=== PATIENT | male | born 1985 | race African-American/Black ===

== ENCOUNTER 2021-09-07 11:51 | Outpatient (REF) | payer BC, SELFPAY ==
--- NOTE | ~2021-09-07 | XR_ITS ---
EXAMINATION: XR SHOULDER, RIGHT CLINICAL INFORMATION: Right shoulder injury. COMPARISON: 12/05/2015 TECHNIQUE: Four views of the right shoulder. FINDINGS: No fracture or dislocation. The glenohumeral joint is well aligned. The joint space is maintained. Widening at the acromioclavicular joint is unchanged from previous imaging. The visualized lung is clear. Visualized ribs are intact. XR/XR shoulder RT min 2V IMPRESSION: Normal appearance of the glenohumeral joint. Chronic widening of the acromioclavicular joint.
== END 2021-09-07 11:52 | disposition home or self-care (01) ==
LOC: HO.XRAY 11:51
PROVIDERS: PCP Internal Medicine; Visit Provider Internal Medicine
DX: S49.91XA Unspecified injury of right shoulder and upper arm, initial encounter (principal); X58.XXXA Exposure to other specified factors, initial encounter; Y93.9 Activity, unspecified; Y92.9 Unspecified place or not applicable; Y99.8 Other external cause status
CPT/HCPCS: 73030

== ENCOUNTER 2022-01-17 15:25 | Outpatient (REF) | payer BC, SELFPAY ==
--- NOTE | ~2022-01-17 | MR_ITS ---
EXAMINATION: MR FEMUR WITHOUT CONTRAST, RIGHT CLINICAL INFORMATION: Right thigh pain following injury in October 2019. COMPARISON: None TECHNIQUE: Multisequence MR imaging of the right femur was obtained without contrast on a high-field strength scanner. FINDINGS: BONE: No abnormal marrow signal. No stress reaction, fracture, or avascular necrosis. No concerning lytic or blastic osseous lesion. MUSCLES/TENDONS: The visualized muscles and tendons are intact. No measurable tear. No associated edema to suggest acute injury. SOFT TISSUES: No abnormal soft tissue mass or fluid collection. No significant subcutaneous edema. The visualized intrapelvic structures are unremarkable. MR/MR femur RT wo con IMPRESSION: Unremarkable examination.
== END 2022-01-17 15:26 | disposition home or self-care (01) ==
LOC: HO.MRI 15:25
PROVIDERS: PCP Internal Medicine; Visit Provider Internal Medicine
DX: M79.651 Pain in right thigh (principal); S79.911D Unspecified injury of right hip, subsequent encounter
CPT/HCPCS: 73718

== ENCOUNTER → 2023-07-16 08:13 | Outpatient (REF) | payer BC, SELFPAY ==
--- NOTE | 2023-07-16 08:18 | CA_ITS ---
Acquisition Time: 2023-07-16 08:26:33 Total Exercise Time: 00:10:00 Test Indications: CP Medications: SEE H Protocol: DWAYNE Max HR: 160 BPM 87% of Pred: 182 BPM Max BP: 168/068 mmHG Max Work Load: 11.7 METS PT EXERCISED ON STD DWAYNE PROTOCOL FOPR 10 MIN INTO STAGE 4. MAX HR 160-87%MAX. NO CP OR SOB. NO EKG CHANGES. CLINICALLY AND ELEC NEG. Referred By: Jarek Miller Overread By: SEBASTIAN MILLER MD
[2023-07-16 09:09] LABS: MANUAL DIFF FLAG NO
[2023-07-16 09:29] LABS: Basophils Percent Auto 0.6 % (0-2); Eosinophils Absolute Auto 0.2 X10*3/uL (0.0-0.4); Eosinophils Percent Auto 4.4 % (0-4); Hematocrit 46.7 % (42.0-52.0); Hemoglobin 15.9 g/dl (14.0-18.0); Imm Gran Abs Auto 0.01 X10*3/uL (0.00-0.03); Imm Gran Pct Auto 0.3 % (0.0-0.4); Lymphocytes Absolute Auto 1.7 X10*3/uL (1.2-4.9); Lymphocytes Percent Auto 49.1 % (20-40); Mean Corpuscular Hemoglobin 30.6 pg (27.0-33.0); Mean Platelet Volume 10.2 fL (9.4-12.4); Monocytes Absolute Auto 0.4 X10*3/uL (0.1-1.2); Monocytes Percent Auto 11.1 % (2-11); Neutrophils Absolute Auto 1.2 x10*3/uL (2.0-8.3); Neutrophils Percent Auto 34.5 % (45-73); Platelet Count 192 X10*3/uL (160-400); Red Blood Count 5.19 X10*6/uL (4.60-5.80); Red Cell Distribution Width 12.4 % (11.0-16.0); White Blood Count 3.4 X10*3/uL (4.8-10.8)
[2023-07-16 10:15] LABS: Alanine Aminotransferase 34 U/L (0-40); Albumin Level 4.3 g/dL (3.5-5.0); Alkaline Phosphatase 61 U/L (39-117); Anion Gap 12 (12-20); Aspartate Amino Transferase 26 U/L (5-37); Bilirubin Total 1.8 mg/dL (0.0-1.0); Blood Urea Nitrogen 13 mg/dL (9-16); Calcium 8.9 mg/dL (8.4-10.2); Carbon Dioxide 27 mmol/L (22-29); Chloride 106 mmol/L (96-108); Cholesterol 295 mg/dL (<200); Estimated Glomerular Filt Rate > 60; Glucose Fasting 93 mg/dL (60-99); HDL Cholesterol 77 mg/dL (>40); LDL Cholesterol Calculated 205 mg/dL (<100); Sodium 141 mmol/L (135-145); Total Protein 7.2 g/dL (6.5-8.0); Triglycerides 65 mg/dL (<150)
== END ==
LOC: HO.CARD 08:13
PROVIDERS: PCP Internal Medicine; Visit Provider Internal Medicine
DX: Z00.00 Encounter for general adult medical examination without abnormal findings (principal); Z13.6 Encounter for screening for cardiovascular disorders
CPT/HCPCS: 36415; 80053; 80061; 85025; 93017

== ENCOUNTER 2023-08-13 15:05 | Outpatient (REF) | payer BC, SELFPAY ==
[2023-08-13 15:55] LABS: Appearance Urine Clear; Color Urine Yellow; Glucose Urine UA Negative (Negative); Leukocyte Esterase Urine Negative (Negative); Nitrite Urine Negative (Negative); PH 7.5 (5.0-9.0); Specific Gravity - Urine 1.015 (1.005-1.025); Urine Blood Negative (Negative); Urine Ketones Negative (Negative); Urine Protein Negative (Neg-Trace)
[2023-08-14 04:08] LABS: Syphilis Screen Nonreactive (Nonreactive)
[2023-08-14 04:28] LABS: HIV AB/AG Nonreactive (Nonreactive); HIV Num 1 0.04 S/CO (0.00-0.99)
[2023-08-14 05:32] LABS: CT PCR NOT DETECTED (Not Detect.); NG PCR NOT DETECTED (Not Detect.)
== END 2023-08-13 15:06 | disposition home or self-care (01) ==
LOC: HO.LAB 15:05
PROVIDERS: Visit Provider Internal Medicine
DX: R30.0 Dysuria (principal); Z11.3 Encounter for screening for infections with a predominantly sexual mode of transmission
CPT/HCPCS: 0353U; 81003; 86780; 87086; 87389

== ENCOUNTER 2024-01-07 15:38 | Outpatient (REF) | payer BC, SELFPAY ==
--- NOTE | ~2024-01-07 | US_ITS ---
EXAMINATION: US TRIPLEX LOWER EXTREMITY, RIGHT CLINICAL INFORMATION: Right leg swelling COMPARISON: None available. TECHNIQUE: Color-flow triplex imaging with spectral analysis and compression Doppler were performed on the right lower extremity. FINDINGS: Respiratory variation, normal compression and augmented flow are noted throughout the right lower extremity. The visualized common femoral vein, superficial femoral vein, profunda femoral vein, popliteal vein and midcalf peroneal and posterior tibial venous segments show no evidence of deep venous thrombosis. There is no Milton's cyst. US/US venous duplex LE RT IMPRESSION: No evidence of deep venous thrombosis involving the right lower extremity. Electronically signed by: Loli Bacon MD 01/07/2024 04:09 PM EDT RP
--- NOTE | ~2024-01-07 | XR_ITS ---
EXAMINATION: XR SHOULDER, LEFT CLINICAL INFORMATION: Left shoulder pain COMPARISON: None available. TECHNIQUE: AP external rotation, Grashey, scapular Y, and axillary views of the left shoulder. FINDINGS: The bones and soft tissues are normal. No fracture. Glenohumeral and acromioclavicular alignment is anatomic with normal joint space. No abnormal soft tissue calcifications. XR/XR shoulder LT min 2V IMPRESSION: Normal left shoulder. Electronically signed by: Thomas Simeon MD 01/07/2024 04:53 PM EDT
== END 2024-01-07 15:39 | disposition home or self-care (01) ==
LOC: HO.US 15:38
PROVIDERS: PCP Internal Medicine; Visit Provider Internal Medicine
DX: R22.41 Localized swelling, mass and lump, right lower limb (principal); M25.512 Pain in left shoulder
CPT/HCPCS: 73030; 93971

== ENCOUNTER 2024-02-13 11:47 | Day surgery (SDC) | payer BC, SELFPAY ==
--- NOTE | 2024-02-12 10:31 | HO.ANESPROP2 ---
Documented by User: Ella Murphy NP 02/12/24 10:31 HPI - Anesthesia Eval Consult details Narrative: 38yo M for Upper Endoscopy [facility] Surgical History Surgical History Hx of knee surgery Social History Social History Patient Tobacco Use Status: Never used Tobacco Use of substances other than those prescribed or required for medical reasons: No Are you DNR?: No Advance Directives: No Advance Directives Information Provided: Yes Recently lost weight without trying: No Meds Allergies Allergy/AdvReac Type Severity Reaction Status Date / Time No Known Allergies Allergy Verified 02/13/24 11:59 Home Medications ?Medication ?Instructions ?Recorded ?Confirmed ?Last Taken ?Type No Known Home Meds 02/12/24 02/12/24 Unknown History Assessment and Plan Assessment Anesthesia Assessment: Chart Reviewed Documented by User: Julieta Cuenca MD 02/13/24 12:39 [facility] Surgical History Surgical History Hx of knee surgery History of Problems with Anesthesia: No Social History Social History Patient Tobacco Use Status: Never used Tobacco Use of substances other than those prescribed or required for medical reasons: No Are you DNR?: No Advance Directives: No Advance Directives Information Provided: Yes Recently lost weight without trying: No Meds Allergies Allergy/AdvReac Type Severity Reaction Status Date / Time No Known Allergies Allergy Verified 02/13/24 11:59 Home Medications ?Medication ?Instructions ?Recorded ?Confirmed ?Last Taken ?Type No Known Home Meds 02/12/24 02/12/24 Unknown History Exam Airway Mallampati Class: III TM Dist: >3cm Neck ROM: Full Loose/Missing/Broken Teeth: No Heart: RRR Lungs: CTA Assessment and Plan Assessment Anesthesia Assessment: Anesthesia Plan Discussed Final Anesthetic Review History of Problems with Anesthesia: No NPO: Yes ASA Class: I Final Preanesthetic Review: Meds/Allgs Chart Reviewed, Consent Obtained/Reviewed and Anes Risks/Benef Reviewed Patient Risk: Low Procedure Risk: Intermediate Anesthetic Plan Anesthetic Plan: MAC: Disposition: Standard PACU
[2024-02-13 11:59] VITALS: BMI 26.2
[2024-02-13 12:16] VITALS: BP 137/69; PULSE 58; RESP 15; TEMP 36.8; O2SAT 97
[2024-02-13] MEDS: Lactated Ringers 1,000 ML 100 ML IVCONT (12:18)
--- NOTE | 2024-02-13 12:38 | MHC.SHP ---
Pre-Procedural Eval Section A - 24 Hr Update-Section A only Date of Service: 02/13/24 The patient is an INPATIENT: No Changes since office visit: No Cold of Flu in the past 2 weeks, No New Medical Problems, No Changes in Medication and No Patient answered all questions The patient has been examined within 24 hours of the surgical procedure. The History & Physical has been completed within 30 days and I have reviewed it.: Yes Section B - Complete if H&P > 30 days Chief Complaint: Epigastric pain Allergies: Allergies Allergy/AdvReac Type Severity Reaction Status Date / Time No Known Allergies Allergy Verified 02/13/24 11:59 Plan I have reviewed the history and physical and performed a pertinent physical examination on my patient. No changes have occurred unless specified. Time Spent With Patient Time: Total time managing care of this patient today ____ minutes.
[2024-02-13 13:09] VITALS: BP 99/47; PULSE 64; RESP 16; TEMP 36.8; O2SAT 99
[2024-02-13 13:24] VITALS: BP 116/66; PULSE 63; RESP 16; O2SAT 96
[2024-02-13 13:39] VITALS: BP 120/65; PULSE 61; RESP 16; TEMP 36.6; O2SAT 97
--- NOTE | 2024-02-13 23:28 | OP_ITS ---
DATE OF SERVICE: 02/13/2024 SURGEON: Ike Savage MD INDICATIONS: Chest and epigastric pain. PREOPERATIVE DIAGNOSIS: POSTOPERATIVE DIAGNOSIS: PROCEDURE PERFORMED: Upper endoscopy with biopsy. ESTIMATED BLOOD LOSS: COMPLICATIONS: ANESTHESIA: Monitored anesthesia care. ASSISTANTS: SPECIMENS: DESCRIPTION OF PROCEDURE: A history and physical was performed. The risks and benefits of the procedure were explained to the patient. Informed consent was obtained. The patient was placed in the left lateral decubitus position. The Olympus video gastroscope was introduced into the esophagus, stomach, and duodenum. Examination was performed. The scope was removed. He tolerated the procedure well and was taken to recovery area in stable condition. FINDINGS: Esophagus: The esophagus was normal. There was an irregular EG junction and a small sliding hiatal hernia. Stomach: The stomach was normal. Duodenum: The bulb and 2nd portion were normal. Biopsies were obtained from the EG junction, antrum, and duodenum. IMPRESSION: Normal upper endoscopy. RECOMMENDATION: Follow up biopsy results. MD MIMI Hooks/JOSEL / [id number]
== END 2024-02-13 14:54 | disposition home or self-care (01) ==
PROVIDERS: PCP Internal Medicine; Visit Provider Internal Medicine Gastroenterology
PROC: 0DJ08ZZ Inspection of Upper Intestinal Tract, Via Natural or Artificial Opening Endoscopic (ICD-10-PCS; CPT 43235; principal; 2024-02-13 13:10)
DX: R10.13 Epigastric pain (principal); K29.50 Unspecified chronic gastritis without bleeding; K22.89 Other specified disease of esophagus; R07.9 Chest pain, unspecified; K44.9 Diaphragmatic hernia without obstruction or gangrene; Z82.49 Family history of ischemic heart disease and other diseases of the circulatory system
CPT/HCPCS: 43239; 88305; 88313; 88342; J1100; J1596; J2003; J2250; J2704